=== PATIENT | female | born 1985 | race Hispanic/Latino ===

== ENCOUNTER 2021-07-26 09:54 | Day surgery (SDC) | payer BC ==
[2021-07-11 13:50] LABS: Hematocrit 31.4 % (30.3-42.9); Hemoglobin 10.8 gm/dl (10.1-14.3); Mean Corpuscular HGB Conc 34 % (30-34); Mean Corpuscular Volume 88 fl (79-97); Red Blood Count 3.56 M/mm3 (3.65-5.03); Red Cell Distribution Width 13.6 % (13.2-15.2)
[2021-07-11 13:52] LABS: Platelet Count 246 K/mm3 (140-440)
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
[~2021-07-26 09:54] MED LIST: ACETAMINOPHEN 500 MG TAB PO SCH; LACTATED RINGERS 1,000 ML IV SCH; MIDAZOLAM 2 MG/2 ML INJ IV NR; SCOPOLAMINE TRANSDERMAL PATCH 72 HR TD NR
[2021-07-26] MEDS ORDERED: HYDROmorphone 1 MG/1 ML INJ IV PRN (10:36)
[2021-07-26] MEDS ORDERED: HYDROcodone/ACETAMINOPHEN 5-325 MG TAB PO PRN (10:36)
[2021-07-26] MEDS ORDERED: ALBUTEROL 2.5 MG/3 ML NEBU IH PRN (10:36)
[2021-07-26] MEDS ORDERED: ONDANSETRON 4 MG/2 ML INJ IV PRN (10:36)
--- NOTE | 2021-07-26 10:36 | Anesthesia Consultation ---
Anesthesia Consult and Med Hx Date of service: 07/26/21 - Airway Anesthetic Teeth Evaluation: Good ROM Head & Neck: Adequate Mental/Hyoid Distance: Adequate Mallampati Class: Class I Intubation Access Assessment: Good - Pre-Operative Health Status ASA Pre-Surgery Classification: ASA3 Proposed Anesthetic Plan: General - Pulmonary Hx Smoking: No Hx Respiratory Symptoms: No Hx Pneumonia: Yes (COVID PNA 03/2021; feels back to baseline) - Cardiovascular System Hx Hypertension: No Hx Heart Attack/AMI: No - Central Nervous System CVA: No - Endocrine Hx Renal Disease: No Hx Liver Disease: No Hx Insulin Dependent Diabetes: No Hx Non-Insulin Dependent Diabetes: No (borderline DM; no meds) Hx Hypothyroidism: Yes (took synthroid this morning) - Hematic Hx Anemia: Yes - Other Systems Hx Obesity: Yes (BMI 44) - Additional Comments Anesthesia Medical History Comments: No hx anesthetic complications.
--- NOTE | 2021-07-26 10:36 | Anesthesia Day of Surgery ---
Anesthesia Day of Surgery - Day of Surgery Patient Examined: Yes Patient H&P Reviewed: Yes Patient is NPO: Yes
[2021-07-26] MEDS ORDERED: LIDOCAINE MPF (2%) 20 MG/1 ML VIAL 5 ML ONE (11:04)
[2021-07-26] MEDS ORDERED: propofoL 200 MG/20 ML VIAL IV ONE (11:04)
[2021-07-26] MEDS ORDERED: fentaNYL 100 MCG/2 ML INJ ONE ×2 (11:05→12:01)
[2021-07-26] MEDS ORDERED: SODIUM CHLORIDE 0.9% IRR 1,500 ML BOTTLE IR ONE (11:30)
[2021-07-26] MEDS ORDERED: SODIUM CHLORIDE 0.9% IRRIG SOLN 2000 ML IR ONE (11:30)
[2021-07-26] MEDS ORDERED: MIDAZOLAM 5 MG/5 ML INJ MDV IV ONE (11:32)
[2021-07-26] MEDS ORDERED: KETOROLAC 30 MG/1 ML INJ ONE (11:42)
[2021-07-26] MEDS ORDERED: ONDANSETRON 4 MG/2 ML INJ ONE (11:42)
[2021-07-26] MEDS ORDERED: dexAMETHasone 20 MG/5 ML VIAL ONE (12:03)
[2021-07-26] MEDS ORDERED: ACETAMINOPHEN 325 MG TAB PO PRN (12:31)
--- NOTE | 2021-07-26 12:31 | Operative Report ---
Operative Report Operative Report: Date of procedure: July 26, 2021 Pre-operative diagnosis: Endometrial mass with menorrhalgia Post-operative diagnosis: Same Procedure name(s): Operative hysteroscopy with MyoSure Surgeon: Rohan Galvan MD Chain Sales Representative: TENA Anesthesia: Gen. EBL: Minimal Complications: None Findings: Multiple fleshy appearing lesions 1 mass cough consistent with a intracavitary myoma. Specimen(s): Uterine mass Procedure: Patient was brought into the operating room, where general anesthesia was induced without any difficulty. Patient was placed in dorsal lithotomy position. Prep and drape in the usual sterile manner. Timeout procedure was performed. The patient's bladder was emptied with a red rubber catheter. Speculum was placed in the vagina. Tenaculum was placed at 12:00 on the cervix. The cervical os was dilated to a 19 Kazakh diameter. The hysteroscope was placed and the findings noted above. The MyoSure device was primed. The device was placed through the cervical os. The mass was then removed using the MyoSure. The mass was completely removed with no evidence of puncture on the uterine wall. All instruments were then removed. The patient was awakened in the operating room and accompanied to recovery room in good condition.
--- NOTE | 2021-07-26 12:34 | Discharge Summary ---
Short Stay Discharge Plan Activity: no restrictions Diet: regular Additional Instructions: Patient was admitted underwent the above him procedure without any complications. Patient will be discharged with follow-up in office in 1-2 weeks for postop check. Patient to call office for fever chills nausea, vomiting.heavy vaginal bleeding or pain uncontrolled by pain medication Follow up with: PRIMARY CARE, [Primary Care Provider] - 7 Days Prescriptions: Ibuprofen [Motrin] 800 mg PO TID PRN #30 tablet PRN Reason: Pain DOXYCYCLINE Hyclate [Vibramycin CAP] 100 mg PO Q12HR #14 capsule
--- NOTE | 2021-07-26 15:02 | Post Anesthesia Evaluation ---
- Post Anesthesia Evaluation Patient Participated: Yes Airway Patent: Yes Stable Respiratory Function: Yes Nausea/Vomiting: No Temp > 96.8F: Yes Pain Manageable: Yes Adequeate Hydration: Yes Anesthesia Complications: No
[2021-07-26 17:21] VITALS: BP 100/40
== END 2021-07-26 14:30 | disposition home or self-care (01) ==
LOC: OR 09:54
PROVIDERS: ATTEND Obstetrics & Gynecology
DX: N92.0 Excessive and frequent menstruation with regular cycle (principal); N85.8 Other specified noninflammatory disorders of uterus; E03.9 Hypothyroidism, unspecified; N94.89 Other specified conditions associated with female genital organs and menstrual cycle; M19.90 Unspecified osteoarthritis, unspecified site; E11.9 Type 2 diabetes mellitus without complications; D64.9 Anemia, unspecified; Z20.822 Contact with and (suspected) exposure to COVID-19; Z79.899 Other long term (current) drug therapy; Z87.01 Personal history of pneumonia (recurrent); Z72.89 Other problems related to lifestyle; Z98.890 Other specified postprocedural states
CPT/HCPCS: 36415; 58558; 81025; 84703; 85027; 88305; C1782; J1100; J1885; J2250; J2405; J2704; J3010; J3490; J7120; U0003